=== PATIENT | male | born 1995 | race Caucasian/White ===

== ENCOUNTER 2018-02-09 22:44 | Emergency (ER) | payer BC ==
[~2018-02-09] VITALS: Ht 185.4 cm; Wt 97.7 kg
[2018-02-09 22:47] VITALS: TEMP 98.1
[2018-02-10] MEDS ORDERED: CARAFATE S1 GM/10 ML PO (00:22)
[2018-02-10] MEDS ORDERED: NEXIUM 20MG20 MG PO (00:22)
[2018-02-10 00:31] VITALS: BP 133/95; PULSE 94
== END 2018-02-10 00:38 | disposition home or self-care (01) ==
LOC: COL.ER 22:44
DX: R07.89 Other chest pain (principal)